=== PATIENT | female | born 1985 | race Caucasian/White ===

== ENCOUNTER 2020-06-23 15:35 | Inpatient (IN) | payer OTHER ==
[~2020-06-23] VITALS: Ht 163 cm; Wt 90.7 kg
[~2020-06-23 15:35] MED LIST: PNV1TABL54 PO
[2020-06-23 15:59] VITALS: BP 130/77
[2020-06-23] MEDS ORDERED: RINGERS SOLUTION,LACTATED 1,000 ML IV ONE (17:00)
[2020-06-23] MEDS ORDERED: RINGERS SOLUTION,LACTATED 1,000 ML IV PRN (19:01)
[2020-06-23] MEDS ORDERED: OXYTOCIN 30 UNITS/LACT RINGERS 500 ML IV ONE ×2 (19:01→21:54)
[2020-06-23] MEDS ORDERED: OXYTOCIN 30 UNITS/LACT RINGERS 500 ML IV PRN (19:01)
[2020-06-23] MEDS ORDERED: RINGERS SOLUTION,LACTATED 1,000 ML IV SCH (19:01)
[2020-06-23] MEDS ORDERED: FentaNYL CITRATE-PF 100 MCG/2 ML VIAL IVP PRN (19:15)
[2020-06-23] MEDS ORDERED: LIDOCAINE/PF 1% 30 ML VIAL INJ PRN ×2 (19:15→22:00)
[2020-06-23] MEDS ORDERED: CITRIC ACID/SODIUM CITRATE 30 ML SOLUTION UDCUP PO PRN (19:15)
[2020-06-23] MEDS ORDERED: METHYLERGONOVINE MALEATE 0.2 MG/ML VIAL IM PRN (19:15)
[2020-06-23] MEDS ORDERED: METOCLOPRAMIDE HCL 5 MG/ML 2 ML VIAL IVP PRN (19:15)
[2020-06-23 19:33] LABS: BASOPHILS % (AUTO) 0.9 % (0.0-2.0); EOSINOPHILS % (AUTO) 0.6 % (1.0-6.0); HEMATOCRIT 37.2 % (36-46); HEMOGLOBIN 12.6 g/dL (12.0-16.0); LYMPHOCYTES # (AUTO) 2.3 K/uL (1.0-4.8); LYMPHOCYTES % (AUTO) 22.9 % (22.0-44.0); MEAN CORPUSCULAR HEMOGLOBIN 28.1 pg (26.0-34.0); MEAN CORPUSCULAR VOLUME 83 fL (80-100); MONOCYTES # (AUTO) 0.7 K/uL (0.1-1.0); MONOCYTES % (AUTO) 6.5 % (2.0-9.0); NEUTROPHILS # (AUTO) 7.1 K/uL (1.8-7.7); NEUTROPHILS % (AUTO) 69.1 % (40.0-70.0); PLATELET COUNT (AUTO)-OB 308 K/uL (150-450); RED BLOOD CELL COUNT(AUTO) 4.49 MIL/uL (4.00-5.20); RED CELL DISTRIBUTION WIDTH 14.3 % (11.5-14.5)
[2020-06-23] MEDS ORDERED: OXYGEN THERAPY IH SCH (20:00)
[2020-06-23] MEDS ORDERED: ROPIVACAINE HCL/PF 0.2% 100 ML ED ONE (20:08)
[2020-06-23] MEDS ORDERED: ONDANSETRON HCL 4 MG/2 ML VIAL IVP PRN (20:30)
[2020-06-23] MEDS ORDERED: NALBUPHINE HCL 10 MG/ML VIAL IVP PRN (20:30)
[2020-06-23] MEDS ORDERED: ROPIVACAINE HCL/PF 0.2% 100 ML ED PRN (20:30)
[2020-06-23] MEDS ORDERED: DiphenhydrAMINE HCL 50 MG/ML VIAL IVP PRN (20:30)
[2020-06-23] MEDS ORDERED: MINERAL OIL 30 ML UDCUP VG ONE (21:30)
[2020-06-23 21:39] LABS: GLUCOMETER DEV NAME(LOC) 4S.; GLUCOSE,POINT OF CARE 77 MG/DL (70-110)
[2020-06-23] MEDS ORDERED: OxyCODONE HCL/ACETAMINOPHEN 5-325 MG TABLET PO PRN ×2 (22:00)
[2020-06-23] MEDS ORDERED: LANOLIN 7 GM OINTMENT TP PRN (22:00)
[2020-06-23] MEDS ORDERED: MAGNESIUM HYDROXIDE SUSPENSION 30 ML UDCUP PO PRN (22:00)
[2020-06-23] MEDS ORDERED: GLYCERIN/WITCH HAZEL LEAF 40 PADS JAR TP PRN (22:00)
[2020-06-23] MEDS ORDERED: BENZOCAINE 20%/MENTHOL 56 GM SPRAY CANISTER TP PRN (22:00)
[2020-06-24] MEDS: IBUPROFEN 800 MG TABLET PO PRN ×3 (02:04→17:00)
[2020-06-24 06:55] LABS: BASOPHILS % (AUTO) 0.7 % (0.0-2.0); EOSINOPHILS % (AUTO) 0.6 % (1.0-6.0); HEMATOCRIT 35.7 % (36-46); HEMOGLOBIN 11.4 g/dL (12.0-16.0); LYMPHOCYTES # (AUTO) 2.6 K/uL (1.0-4.8); LYMPHOCYTES % (AUTO) 21.5 % (22.0-44.0); MEAN CORPUSCULAR HEMOGLOBIN 26.7 pg (26.0-34.0); MEAN CORPUSCULAR HGB CONC 31.9 G/dL (31.0-37.0); MEAN CORPUSCULAR VOLUME 84 fL (80-100); MONOCYTES # (AUTO) 0.9 K/uL (0.1-1.0); MONOCYTES % (AUTO) 7.4 % (2.0-9.0); NEUTROPHILS # (AUTO) 8.4 K/uL (1.8-7.7); NEUTROPHILS % (AUTO) 69.8 % (40.0-70.0); RED BLOOD CELL COUNT(AUTO) 4.27 MIL/uL (4.00-5.20); RED CELL DISTRIBUTION WIDTH 14.2 % (11.5-14.5)
[2020-06-24 07:02] LABS: PLATELET COUNT (AUTO)-OB 268 K/uL (150-450)
[2020-06-25] MEDS: IBUPROFEN 800 MG TABLET PO PRN (06:42)
[2020-06-25] MEDS ORDERED: IBUP-2071 PO (08:13)
[2020-06-25] MEDS ORDERED: DOCU-275 PO (08:15)
[2020-06-25] MEDS ORDERED: FERR-89 PO (08:16)
== END 2020-06-25 11:45 | disposition home or self-care (01) | DRG 807 ==
LOC: 4S 15:35 → OBSVTOIN 15:35
PROVIDERS: ADMIT Obstetrics & Gynecology; ATTEND Obstetrics & Gynecology
PROC: 10E0XZZ Delivery of Products of Conception, External Approach (ICD-10-PCS; principal; 2020-06-23)
PROC: 3E0R3BZ Introduction of Anesthetic Agent into Spinal Canal, Percutaneous Approach (ICD-10-PCS; 2020-06-23)
PROC: 00HU33Z Insertion of Infusion Device into Spinal Canal, Percutaneous Approach (ICD-10-PCS; 2020-06-23)
DX: O77.0 Labor and delivery complicated by meconium in amniotic fluid (principal); Z37.0 Single live birth; Z3A.38 38 weeks gestation of pregnancy
CPT/HCPCS: 76811; 83036; 86850; 86900; 86901; 99219; J2210; J2590; J2795; J7120